=== PATIENT | male | born 1970 | race Caucasian/White ===

== ENCOUNTER 2023-02-01 19:10 | Outpatient (OUT) | payer BC, SELFPAY | END 2023-02-01 19:11 | disposition home or self-care (01) | LOC: PST 19:18 | PROVIDERS: Visit Provider Surgery | DX: Z01.818 Encounter for other preprocedural examination (principal); Z12.11 Encounter for screening for malignant neoplasm of colon ==

== ENCOUNTER 2023-02-06 08:25 | Day surgery (SDC) | payer BC, SELFPAY ==
--- NOTE | 2023-02-06 | OP_ITS ---
OPERATION DATE: ??02/06/2023 PREOPERATIVE DIAGNOSIS:? Colorectal screening. POSTOPERATIVE DIAGNOSIS:? Normal colonoscopy to cecum. PROCEDURE:? Colonoscopy to cecum. SURGEON:? Daniel Navarro M.D. ANESTHESIA:? Monitored anesthesia care. ESTIMATED BLOOD LOSS:? Zero. INDICATIONS AND CONSENT:? Patient is a 52-year-old male presents for colorectal screening.? Indications, risks, benefits, alternatives of proceeding with colonoscopy were explained extensively to the patient, including the risks of bleeding, colon perforation or anesthetic complications.? All of his questions were answered.? Informed consent was obtained.? PROCEDURE:? Patient brought to the operating room, placed in the left lateral decubitus position.? Monitored anesthesia care was provided.? Rectal exam was performed which showed no masses or blood.? The scope was inserted into the anal canal.? Under direct visualization was advanced.? With the aid of abdominal compression, it was advanced to the cecum where cecal markings were clearly identified.? Upon withdrawal of the scope, mucosal surfaces were carefully examined.? There were no mass lesions or polyps.? No inflammatory changes or ulcerations.? No significant diverticulosis.?? The scope was retroflexed in the anal canal.? There was no significant hemorrhoidal disease.? The scope was then withdrawn.? Patient tolerated procedure well, was sent to recovery room in good condition. CC:? Meaghan Villanueva M.D. [facility]ENTER[facility]
--- NOTE | 2023-02-06 08:25 | OP_ITS ---
OP Note ? OPERATION DATE: ??02/06/2023 ? ADDENDUM:? Follow up colonoscopy should be in 10 years for colorectal screening. LESLY
[2023-02-06 08:38] VITALS: BP 153/111; PULSE 110; RESP 20; TEMP 36.1; O2SAT 97; BMI 38.9
[2023-02-06 08:40] LABS: Glucometer 212 mg/dL (74-106)
[2023-02-06] MEDS: LACTATED RINGER'S SOLUTION 1,000 ML 50 ML IV (08:47)
[2023-02-06 09:56] VITALS: BP 94/64; PULSE 100; RESP 16; TEMP 36.6; O2SAT 94
[2023-02-06 10:11] VITALS: BP 128/86; PULSE 97; RESP 16; O2SAT 95
[2023-02-06 10:26] VITALS: BP 131/92; PULSE 100; RESP 16; O2SAT 94
== END 2023-02-06 10:26 | disposition home or self-care (01) ==
PROVIDERS: PCP Specialist; Visit Provider Surgery
PROC: (CPT 45378; principal; 2023-02-06 10:25)
DX: Z12.11 Encounter for screening for malignant neoplasm of colon (principal); E11.9 Type 2 diabetes mellitus without complications; I10 Essential (primary) hypertension; E78.5 Hyperlipidemia, unspecified; G47.33 Obstructive sleep apnea (adult) (pediatric); E66.01 Morbid (severe) obesity due to excess calories; Z79.84 Long term (current) use of oral hypoglycemic drugs; Z68.39 Body mass index [BMI] 39.0-39.9, adult
CPT/HCPCS: 45378; 36415; 82948; J2704

== ENCOUNTER 2023-07-29 09:52 | Outpatient (OUT) | payer BC, SELFPAY ==
[2023-07-29 10:21] LABS: Basophils Absolute Auto 0.1 10^3/uL (0.0-0.1); Basophils Percent Auto 0.9 % (0.2-2.0); Eosinophils Absolute Auto 0.2 10^3/uL (0.0-0.7); Eosinophils Percent Auto 2.5 % (0.9-7.0); Hematocrit 44.7 % (42.0-54.0); Immature Granulocytes Abs Auto 0.04 10^3/uL (0.00-0.03); Immature Granulocytes Pct Auto 0.4 % (0.0-0.5); Lymphocytes Percent Auto 21.6 % (20.5-60.0); Mean Corpuscular HGB Conc 33.6 g/dL (29.9-35.2); Mean Corpuscular Volume 89.4 fL (80.0-94.0); Mean Platelet Volume 9.6 fL (9.5-13.5); Monocytes Absolute Auto 0.7 10^3/uL (0.3-0.8); Monocytes Percent Auto 7.2 % (1.7-12.0); Neutrophils Absolute Auto 6.3 10^3/uL (1.4-6.5); Neutrophils Percent Auto 67.4 % (43.0-75.0); Platelet Count 402 10^3/uL (150-450); Red Cell Distribution Width 12.2 % (11.0-15.0); White Blood Count 9.4 10^3/uL (4.0-11.0)
[2023-07-29 10:37] LABS: Creatinine Urine Random 361.08 mg/dL (20.00-300.00); Microalbum Creatinine Ratio Ur 6.6 mg/g (0.0-29.9); Microalbumin Urine Random 2.4 mg/dL (<=30.0)
[2023-07-29 10:41] LABS: Estimated Average Glucose 189 mg/dL; Glycohemoglobin A1C 8.2 % (4.5-6.2)
[2023-07-29 10:54] LABS: Alanine Aminotransferase 36 U/L (16-63); Albumin Globulin Ratio 0.9; Albumin Level 3.9 g/dL (3.4-5.0); Alkaline Phosphatase 65 U/L (46-116); Aspartate Amino Transferase 15 U/L (15-37); BUN Creatinine Ratio 13.1; Bilirubin Total 0.9 mg/dL (0.2-1.0); Calcium 8.9 mg/dL (8.5-10.1); Carbon Dioxide 30.1 mmol/L (21.0-32.0); Chloride 99 mmol/L (98-107); Chol HDL Ratio 4.7; Cholesterol 203 mg/dL (<=200); Estimated GFR (African America >60 (>=60); Estimated GFR (Non-African Ame >60 (>=60); Globulin 4.3 g/dL; Glucose 172 mg/dL (74-106); HDL Cholesterol 43 mg/dL (40-60); Potassium 4.1 mmol/L (3.5-5.1); Sodium 138 mmol/L (136-145); Total Protein 8.2 g/dL (6.4-8.2); Triglycerides 219 mg/dL (<=150); VLDL CHOLESTEROL 43.8 mg/dL
== END 2023-07-29 09:53 | disposition home or self-care (01) ==
LOC: LAB 09:54
PROVIDERS: PCP Internal Medicine; Visit Provider Internal Medicine
DX: Z00.00 Encounter for general adult medical examination without abnormal findings (principal)
CPT/HCPCS: 36415; 80053; 80061; 82043; 82570; 83036; 85025

== ENCOUNTER 2024-10-24 07:50 | Outpatient (OUT) | payer BC, SELFPAY ==
--- OUTSIDE RECORDS SUMMARY | 2024-10-24 07:57 | XMS_ITS | CCD ---
Author Organization [facility] Care Team Providers [facility] Manager Name Role Phone OBDULIA ., DR ARCHANA Ray Admitting Unavailable OBDULIA ., DR ARCHANA Ray Attending Unavailable OBDULIA ., DR ARCHANA Ray Primary Care Unavailable OBDULIA ., DR ARCHANA Ray Consulting Unavailable ARCHANA VILLANUEVA Primary Care Physician Daniel IRELAND Attending Unavailable ARCHANA VILLANUEVA Referring Unavailable Daniel IRELAND Attending Unavailable Shaikh Heath MD Unavailable Jose Luis Cao MD Primary Care Provider [phone] Bre Petty NP Unavailable MARLA PUENTE Attending Unavailable SHAIKH HEATH Attending Unavailable BRE PETTY Attending UnavailBRE Alcaraz Attending Katherine ray Allergies Allergy Classification Reported Allergen(s) Allergy Type Date of Onset Reaction(s) Facility (1 source) No Known Medication Allergies; Translations: [No Known Medication Allergies] Propensity to adverse reactions (disorder) [facility] Repository Medications Current Medications Medication Drug Class(es) Dates Sig (Normalized) Sig (Original) atorvastatin 20 mg oral tablet (13 sources) HMG-CoA Reductase Inhibitor Start: 09-24-2023 End: 03-01-2025 take 1 tablet by mouth once daily atorvastatin (Lipitor) 20 MG tablet Indications: Hyperlipidemia, unspecified hyperlipidemia type (CMS/HCC) Take 1 tablet (20 mg) by mouth Daily 90 tablet 09/02/2024 03/01/2025 Active carbamide peroxide 65 mg/ml otic solution (2 sources) Start: 03-11-2024 End: 03-15-2024 carbamide peroxide (Debrox) 6.5 % otic solution Indications: Cerumen debris on tympanic membrane, left Administer 3-5 drops into affected ear(s) in the morning and 3-5 drops before bedtime. Do all this for 4 days. 15 mL 03/11/2024 03/15/2024 Active glipiZIDE 5 mg oral tablet (14 sources) Sulfonylurea Start: 02-24-2024 End: 02-28-2025 take 1 tablet by mouth in the morning glipiZIDE (Glucotrol) 5 MG tablet Indications: Type 2 diabetes mellitus without complication, without long-term current use of insulin (CMS/HCC) Take 1 tablet (5 mg) by mouth in the morning and 1 tablet (5 mg) in the evening. Take before meals. 180 tablet 09/01/2024 02/28/2025 Active Start: 01-03-2023 take 1 tablet by alyson th once daily glipiZIDE 5 mg Tab 5 mg = 1 tab(s), Oral, Daily, Refills(s) 0 Start Date: 01/03/23 Status: Ordered hydroCHLOROthiazide 12.5 mg / losartan potassium 100 mg oral tablet (12 sources) Thiazide Diuretic, Angiotensin 2 Receptor Sal Start: 09-01-2024 take 1 tablet by mouth once daily losartan-hydroCHLOROthiazide (Hyzaar) 100-12.5 MG tablet Indications: Essential (primary) hypertension (CMS/HCC) , Essential hypertension (CMS/HCC) TAKE 1 TABLET BY MOUTH EVERY DAY 90 tablet 09/01/2024 Active Start: 11-26-2023 take 1 tablet by alyson th once daily losartan-hydroCHLOROthiazide (Hyzaar) 100-12.5 MG tablet Indications: Essential (primary) hypertension (CMS/HCC) , Essential hypertension (CMS/HCC) TAKE 1 TABLET BY MOUTH EVERY DAY 90 tablet 2 11/26/2023 Active Start: 01-03-2023 take 1 tablet by alyson th once daily hydrochlorothiazide-losartan 12.5 mg-100 mg oral tablet 1 tab(s), Oral, Daily, Refill(s) 0 Start Date: 01/03/23 Status: Ordered 24 hr metFORMIN hydrochloride 500 mg extended release oral tablet (15 sources) Biguanide Start: 03-11-2024 End: 06-10-2025 take 1 tablet by mouth every twenty-four hours at mealtime metFORMIN XR (Glucophage-XR) 500 MG 24 hr tablet Indications: Morbid obesity (CMS/HCC) , Type 2 diabetes mellitus without complication, without long-term current use of insulin (CMS/HCC) TAKE 1 TABLET (500 MG) BY MOUTH IN THE EVENING. TAKE WITH MEALS DO NOT CRUSH, CHEW, OR SPLIT. 30 tablet 11 06/10/2024 06/10/2025 Active Start: 11-28-2023 End: 03-11-2024 take 1 tablet by mouth twice daily metFORMIN (Glucophage) 500 MG tablet Indications: Type 2 diabetes mellitus without complications (CMS/HCC) TAKE 1 TABLET BY MOUTH TWICE A DAY 180 tablet 2 11/28/2023 03/11/2024 Discontinued (Side effects) Start: 01-03-2023 take 1 tablet by alyson th once daily metformin 500 mg ER Tab 500 mg = 1 tab(s), Oral, Daily, Refills(s) 0 Start Date: 01/03/23 Status: Ordered semaglutide 7 mg oral tablet (13 sources) Start: 02-04-2024 End: 09-07-2024 take 1 tablet by mouth before mealtime semaglutide (Rybelsus) 7 MG tablet Indications: Morbid obesity (CMS/HCC) , Type 2 diabetes mellitus without complication, without long-term current use of insulin (CMS/HCC) Take 1 tablet (7 mg) by mouth in the morning. Take before meals. 90 tablet 1 03/11/2024 09/07/2024 Active Problems Active Problems Problem Classification Problem Date Documented Da te Episodic/Chronic Diabetes mellitus without complication (20 sources) Diabetes mellitus; Translations: [Type 2 diabetes mellitus without complication] Onset: 07-22-2023 Resolved: 07-22-2023 01-03-2023 Chronic Disorders of lipid metabolism (18 sources) Hyperlipidemia; Translations: [Hyperlipidemia, unspecified] Onset: 07-22-2023 01-03-2023 Chronic Essential hypertension (16 sources) Hypertensive disorder; Translations: [Essential (primary) hypertension] Onset: 07-22-2023 01-03-2023 Chronic Other gastrointestinal disorders (1 source) Irritable bowel syndrome 01-03-2023 Chronic Other nutritional; endocrine; and metabolic disorders (1 source) Body mass index 30+ - obesity 01-08-2023 Chronic Other nutritional; endocrine; and metabolic disorders (15 sources) Morbid obesity; Translations: [Morbid (severe) obesity due to excess calories] Onset: 07-22-2023 01-08-2023 Chronic Other screening for suspected conditions (not mental disorders or infectious disease) (2 sources) Encounter for screening for malignant neoplasm of prostate; Translations: [Screening for malignant neoplasm of colon done] Onset: 09-06-2022 Episodic Residual codes; unclassified (16 sources) Obstructive sleep apnea syndrome; Translations: [Obstructive sleep apnea (adult) (pediatric)] Onset: 07-22-2023 01-03-2023 Chronic Unclassified (1 source) Patient encounter status 01-08-2023 Past or Other Problems Problem Classification Problem Date Documented Da te Episodic/Chronic Cardiac dysrhythmias (11 sources) Tachycardia; Translations: [Tachycardia, unspecified] Onset: 07-22-2023 07-22-2023 Episodic Other ear and sense organ disorders (2 sources) Wax in ear canal; Translations: [Impacted cerumen, left ear] 03-11-2024 Episodic Results Test Name Value Interpretation Reference Range Facil ity Operative Reporton Operative Report [id number] #1.00CD:127 [facility] Outside Colonoscopyon 2022 Outside Colonoscopy [id number] #1.00CD:127 [facility] Outside Colonoscopyon 2022 Outside Colonoscopy [id number] #1.00CD:127 [facility] Reminderson 02-07-2023 Reminders - From: Michelle Hummel LPN To: GSN - Clinical; Sent: 02/07/2023 14:20:47 EDT Show up: 01/07/2033 07:00:00 EDT Subject: colonoscopy recall Due Date/Time: 02/06/2033 07:00:00 EDT Reminder/Recall Patient due for screening colonoscopy 02/06/2033. Normal [facility] Lab Reportson 02-06-2023 Lab Reports [id number] #1.00CD:127 [facility] Pre-Certification Formon Pre-Certification Form [id number]#1.00CD:127 [facility] Ambulatory Visit Summaryon 0 01-09-2023 Ambulatory Visit Summary LUIS M LIPSCOMB :1970 Visit Date:01/08/2023 Ambulatory Visit Instructions Your Diagnosis Screening for malignant neoplasm of colon Your Care Team Attending Physician - BEKA BERRY, Daniel Ortega Primary Care Physician - OBDULIA BERRY, ARCHANA Ray Referring Physician - OBDULIA BERRY, ARCHANA Ray This Is Your Medications List Contact prescribing physician if questions or concerns glipiZIDE (glipiZIDE 5 mg Tab) hydrochlorothiazide- losartan (hydrochlorothiazide -losartan 12.5 mg-100 mg oral tablet) metformin (metformin 500 mg ER Tab) Procedures Performed Arthroscopy of knee, Repair of umbilical hernia, Vasectomy. Discharge Vitals Heart Rate (Peripheral) 80 Respiratory Rate 16 Blood Pressure 134/84 Height 177.8 cm Height 70 in Weight 126 kg Weight 277.2 lb BMI 39.86 Medications What How Much When Instructions Unchanged glipiZIDE (glipiZIDE 5 mg Tab) 1 Tablets By Mouth Every day Contact prescribing physician if questions or concerns Unchanged hydrochlorothiazide- losartan (hydrochlorothiazide -losartan 12.5 mg-100 mg oral tablet) 1 Tablets By Mouth Every day Contact prescribing physician if questions or concerns Unchanged metformin (metformin 500 mg ER Tab) 1 Tablets By Mouth Every day Contact prescribing physician if questions or concerns Allergies No Known Allergies No Known Medication Allergies Problems Ongoing - Any problem that you are currently receiving treatment for. BMI 39.0-39.9,adult Diabetes HTN (hypertension) Hyperlipidemia IBS (irritable bowel syndrome) Morbid obesity IDRIS (obstructive sleep apnea) Screening for malignant neoplasm of colon [facility] Consent for Procedure/Surger yon 01-09-2023 Consent for Procedure/Surgery [id number] #1.00CD:127 [facility] Facesheeton 01-09-2023 Facesheet [id number] #1.00CD:127 Normal [facility] CBC AUTO DIFFon 09-01-2022 BASO # 0.1 103/ul Normal 0.0-0.1 [facility] Comment on above: Performed By: #### C BC #### [facility] [address] [address] [address] Rebeca Maurice Basophils/100 WBC (Bld) 1.1 % Normal 0.2-2.0 [facility] Comment on above: Performed By: #### C BC #### [facility] [address] [address] [address] Rebeca Maurice EO # 0.3 103/ul Normal 0.0-0.7 [facility] Comment on above: Performed By: #### C BC #### [facility] [address] [place] [address] Dr. Rebeca Maurice Eosinophils/100 WBC (Bld) 3.5 % Normal 0.9-7.0 [facility] Comment on above: Performed By: #### C BC #### [facility] [address] [place] [address] Dr. Rebeca Maurice Erythrocyte distribution width (RBC) [Ratio] 12.0 % Normal 11.0-15.0 [facility] Comment on above: Performed By: #### C BC #### [facility] [address] [place] [address] Dr. Rebeca Maurice Hematocrit (Bld) [Volume fraction] 41.0 % Critically low 42.0-54.0 [facility] Comment on above: Performed By: #### C BC #### [facility] [address] [address] [address] Rebeca Maurice Hemoglobin (Bld) [Mass/Vol] 14.3 g/dL Normal 14.0-18.0 [facility] Comment on above: Performed By: #### C BC #### [facility] [address] [place] [address] Dr. Rebeca Maurice IG # 0.02 10e3/ul Normal 0.00-0.03 [facility] Comment on above: Performed By: #### C BC #### [facility] [address] [place] [address] Dr. Rebeca Maurice IG % 0.3 % Normal 0.0-0.5 [facility] Comment on above: Performed By: #### C BC #### [facility] [address] [place] [address] Dr. Rebeca Maurice LYMPH # 1.7 103/ul Normal 1.2-3.8 [facility] Comment on above: Performed By: #### C BC #### [facility] [address] [place] [address] Dr. Rebeca Maurice Lymphocytes/100 WBC (Bld) 23.3 % Normal 20.5-60.0 [facility] Comment on above: Performed By: #### C BC #### [facility] [address] [place] [address] Dr. Rebeca Maurice MANUAL DIFF REQ NO Normal [facility] Comment on above: Performed By: #### C BC #### [facility] [address] [place] [address] Dr. Rebeca Maurice MCH (RBC) [Entitic mass] 30.2 pg Normal 25.9-34.0 [facility] Comment on above: Performed By: #### C BC #### [facility] [address] [place] [address] Dr. Rebeca Maurice MCHC (RBC) [Mass/Vol] 34.9 g/dL Normal 29.9-35.2 [facility] Comment on above: Performed By: #### C BC #### [facility] [address] [place] [address] Dr. Rebeca Maurice MCV (RBC) [Entitic vol] 86.7 fL Normal 80.0-94.0 [facility] Comment on above: Performed By: #### C BC #### [facility] [address] [place] [address] Dr. Rebeca Maurice MONO # 0.5 103/ul Normal 0.3-0.8 [facility] Comment on above: Performed By: #### C BC #### [facility] [address] [place] [address] Dr. Rebeca Maurice Monocytes/100 WBC (Bld) 7.1 % Normal 1.7-12.0 [facility] Comment on above: Performed By: #### C BC #### [facility] [address] [place] [address] Dr. Rebeca Maurice NEUT # 4.7 103/ul Normal 1.4-6.5 [facility] Comment on above: Performed By: #### C BC #### [facility] [address] [place] [address] Dr. Rebeca Maurice Neutrophils/100 WBC (Bld) 64.7 % Normal 43.0-75.0 [facility] Comment on above: Performed By: #### C BC #### [facility] [address] [place] [address] Dr. Rebeca Maurice Platelet mean volume (Bld) [Entitic vol] 9.1 fL Critically low 9.5-13.5 [facility] Comment on above: Performed By: #### C BC #### [facility] [address] [place] [address] Dr. Rebeca Maurice PLT 379 103/ul Normal 150-450 [facility] Comment on above: Performed By: #### C BC #### [facility] [address] [place] [address] Dr. Rebeca Maurice RBC 4.73 106/ul Normal 4.70-6.10 [facility] Comment on above: Performed By: #### C BC #### [facility] [address] [place] [address] Dr. Rebeca Maurice WBC 7.2 103/ul Normal 4.0-11.0 [facility] Comment on above: Performed By: #### C BC #### [facility] [address] [place] [address] Dr. Rebeca Maurice GLYCOHEMOGLOBIN A1Con 2022 ADA RECOMMENDATION SEE BELOW Normal [facility] Comment on above: Result Comment: ADA RECOMMENDED LIMIT 4.0 - 6.0 ADA THERAPEUTIC TARGET < 7.0 ACTION SUGGESTED > 7.0 Performed By: #### A 1C #### [facility] [address] [address] [address] Rebeca Maurice Glucose [Mass/Vol] 180 mg/dL Critically high 74-[address] [facility] Comment on above: Performed By: #### A 1C #### [facility] [address] [address] [address] Rebeca Maurice Performed By: #### C MP, LIPID #### [facility] [address] [address] [address] Rebeca Maurice HbA1c (Bld) [Mass fraction] 7.9 % Critically high 4.5-6.2 [facility] Comment on above: Performed By: #### A 1C #### [facility] [address] [place] [address] Dr. Rebeca Maurice LIPID PROFILEon 09-01-2022 CHOL-HDL RATIO NORM SEE BELOW Normal [facility] Comment on above: Result Comment: 3.3 - 4.4 LOW RISK 4.4 - 7.1 AVERAGE RISK 7.1 - 11.0 MODERATE RISK >11.0 HIGH RISK Performed By: #### C MP, LIPID #### [facility] [address] [place] [address] Dr. Rebeca Maurice Cholesterol [Mass/Vol] 205 mg/dL Critically high <=200 [facility] Comment on above: Performed By: #### C MP, LIPID #### [facility] [address] [place] [address] Dr. Rebeca Maurice Cholesterol in HDL [Mass/Vol] 40 mg/dL Normal 40-60 [facility] Comment on above: Performed By: #### C MP, LIPID #### [facility] [address] [place] [address] Dr. Rebeca Maurice Cholesterol in LDL [Mass/Vol] 132.6 mg/dL Normal [facility] Comment on above: Performed By: #### C MP, LIPID #### [facility] [address] [place] [address] Dr. Rebeca Maurice Cholesterol.total/Cho lesterol in HDL [Mass ratio] 5.1 {ratio} Normal [facility] Comment on above: Performed By: #### C MP, LIPID #### [facility] [address] [address] [address] Rebeca Maurice HDL NORMAL > or = 60 mg/dl - LOW CARDIOVASCULAR RISK <40 mg/dl - HIGH CARDIOVASCULAR RISK Normal [facility] Comment on above: Performed By: #### C MP, LIPID #### [facility] [address] [address] [address] Rebeca Maurice LDL CALC NORMAL SEE BELOW Normal [facility] Comment on above: Result Comment: <100 mg/dl OPTIMAL 100 - 129 mg/dl NEAR OR ABOVE OPTIMAL 130 - 159 mg/dl BORDERLINE HIGH 160 - 189 mg/dl HIGH >190 mg/dl VERY HIGH Performed By: #### C MP, LIPID #### [facility] [address] [place] [address] Dr. Rebeca Maurice Triglyceride [Mass/Vol] 162 mg/dL Critically high <=150 [facility] Comment on above: Performed By: #### C MP, LIPID #### [facility] [address] [place] [address] Dr. Rebeca Maurice VLDL CALC 32.4 mg/dL Normal [facility] Comment on above: Performed By: #### C MP, LIPID #### [facility] [address] [place] [address] Dr. Rebeca Maurice PROF 14(COMP METB)on 023 Albumin [Mass/Vol] 3.8 g/dL Normal 3.4-5.0 [facility] Comment on above: Performed By: #### C MP, LIPID #### [facility] [address] [place] [address] Dr. Rebeca Maurice Albumin/Globulin [Mass ratio] 1.1 {ratio} Normal [facility] Comment on above: Performed By: #### C MP, LIPID #### [facility] [address] [place] [address] Dr. Rebeca Maurice ALP [Catalytic activity/Vol] 65 U/L Normal 46-116 [facility] Comment on above: Performed By: #### C MP, LIPID #### [facility] [address] [place], [place] [id number] Dr. Rebeca Maurice ALT [Catalytic activity/Vol] 48 U/L Normal 16-63 [facility] Comment on above: Performed By: #### C MP, LIPID #### [facility] [address] [address] [address] Rebeca Maurice Anion gap [Moles/Vol] 15.4 mmol/L Normal [facility] Comment on above: Performed By: #### C MP, LIPID #### [facility] [address] [address] [address] Rebeca Maurice AST [Catalytic activity/Vol] 26 U/L Normal 15-37 [facility] Comment on above: Performed By: #### C MP, LIPID #### [facility] [address] [place] [address] Dr. Rebeca Maurice Bilirubin [Mass/Vol] 1.3 mg/dL Critically high 0.2-1.0 [facility] Comment on above: Performed By: #### C MP, LIPID #### [facility] [address] [place] [address] Dr. Rebeca Muarice Calcium [Mass/Vol] 9.1 mg/dL Normal 8.5-10.1 [facility] Comment on above: Performed By: #### C MP, LIPID #### [facility] [address] [place] [address] Dr. Rebeca Maurice Chloride [Moles/Vol] 100 mmol/L Normal 98-107 [facility] Comment on above: Performed By: #### C MP, LIPID #### [facility] [address] [place] [address] Dr. Rebeca Maurice CO2 [Moles/Vol] 26.7 mmol/L Normal 21.0-32.0 [facility] Comment on above: Performed By: #### C MP, LIPID #### [facility] [address] [place] [address] Dr. Rebeca Maurice Creatinine [Mass/Vol] 0.87 mg/dL Normal 0.70-1.30 [facility] Comment on above: Performed By: #### C MP, LIPID #### [facility] [address] [place] [address] Dr. Rebeca Maurice EGFR-AF CHILEAN >60 Normal >=60 [facility] Comment on above: Performed By: #### C MP, LIPID #### [facility] [address] [place] [address] Dr. Rebeca Maurice EGFR-NON AF CHILEAN >60 Normal >=60 [facility] Comment on above: Performed By: #### C MP, LIPID #### [facility] [address] [place] [address] Dr. Rebeca Maurice Globulin (S) [Mass/Vol] 3.6 g/dL Normal [facility] Comment on above: Performed By: #### C MP, LIPID #### [facility] [address] [place] [address] Dr. Rebeca Maurice Potassium [Moles/Vol] 4.1 mmol/L Normal 3.5-5.1 [facility] Comment on above: Performed By: #### C MP, LIPID #### [facility] [address] [place] [address] Dr. Rebeca Maurice Protein [Mass/Vol] 7.4 g/dL Normal 6.4-8.2 [facility] Comment on above: Performed By: #### C MP, LIPID #### [facility] [address] [place] [address] Dr. Rebeca Maurice Sodium [Moles/Vol] 138 mmol/L Normal 136-145 [facility] Comment on above: Performed By: #### C MP, LIPID #### [facility] [address] [place] [address] Dr. Rebeca Maurice Urea nitrogen [Mass/Vol] 10.0 mg/dL Normal 7.0-18.0 [facility] Comment on above: Performed By: #### C MP, LIPID #### [facility] [address] [place] [address] Dr. Rebeca Maurice Urea nitrogen/Creatinine [Mass ratio] 11.5 mg/mg Normal [facility] Comment on above: Performed By: #### C MP, LIPID #### [facility] [address] [place] [address] Dr. Rebeca Maurice Physician Referralon 023 Physician Referral [id number] #1.00CD:127 Normal [facility] Vital Signs Date Time Vital Sign Value Performing Clinician Facility 06-03-2024 16:52-0500 Body height 177.8 cm Bre Petty SENIOR DIRECTOR MARKETING Work Phone: [facility] 06-03-2024 16:52-0500 Body mass index (BMI) [Ratio] 39.17 kg/m2 Bre Petty SENIOR DIRECTOR MARKETING Work Phone: [facility] 06-03-2024 16:52-0500 Body temperature 96.6 [degF] Bre Petty SENIOR DIRECTOR MARKETING Work Phone: [facility] 06-03-2024 16:52-0500 Body weight 123.83 kg Bre Petty SENIOR DIRECTOR MARKETING Work Phone: [facility] 06-03-2024 16:52-0500 Diastolic blood pressure 84 mm[Hg] Bre Petty SENIOR DIRECTOR MARKETING Work Phone: [facility] 06-03-2024 16:52-0500 Heart rate 115 /min Bre Petty SENIOR DIRECTOR MARKETING Work Phone: [facility] 06-03-2024 16:52-0500 Respiratory rate 16 /min Bre Petty SENIOR DIRECTOR MARKETING Work Phone: [facility] 06-03-2024 16:52-0500 SaO2% (BldA) [Mass fraction] 98 % Bre Petty SENIOR DIRECTOR MARKETING Work Phone: [facility] 06-03-2024 16:52-0500 Systolic blood pressure 140 mm[Hg] Bre Petty SENIOR DIRECTOR MARKETING Work Phone: [facility] 03-11-2024 18:03-0400 Body height 177.8 cm Bre Petty SENIOR DIRECTOR MARKETING Work Phone: [facility] 03-11-2024 18:03-0400 Body mass index (BMI) [Ratio] 38.6 kg/m2 Bre Petty SENIOR DIRECTOR MARKETING Work Phone: [facility] 03-11-2024 18:03-0400 Body temperature 98.49 [degF] Bre Petty SENIOR DIRECTOR MARKETING Work Phone: [facility] 03-11-2024 18:03-0400 Body weight 122.02 kg Bre Petty SENIOR DIRECTOR MARKETING Work Phone: [facility] 03-11-2024 18:03-0400 Diastolic blood pressure 84 mm[Hg] Bre Petty SENIOR DIRECTOR MARKETING Work Phone: [facility] 03-11-2024 18:03-0400 Heart rate 82 /min Bre Petty SENIOR DIRECTOR MARKETING Work Phone: [facility] Comment on above: 97% O2 03-11-2024 18:03-0400 Systolic blood pressure 120 mm[Hg] Bre Petty SENIOR DIRECTOR MARKETING Work Phone: [facility] 01-08-2023 15:30-0400 Blood Pressure Location Daniel LOCKEL [facility] 01-08-2023 15:30-0400 Diastolic blood pressure 84 mm[Hg] Daniel NILL [facility] [place] 01-08-2023 15:30-0400 Heart rate 80 /min Daniel NILL [facility] [place] 01-08-2023 15:30-0400 Respiratory rate 16 /min Daniel NILL [facility] [place] 01-08-2023 15:30-0400 Systolic blood pressure 134 mm[Hg] Daniel NILL [facility] [place] Encounters Encounter Date Encounter Type Care Provider Facility Start: 09-28-2024 End: 09-28-2024 ambulatory MARLA PUENTE Not Available Start: 09-02-2024 End: 09-02-2024 Refill Bre Petty SENIOR DIRECTOR MARKETING Work Phone: [facility] Comment on above: Hyperlipidemia, unsp ecified hyperlipidemia type (CMS/HCC) Start: 09-01-2024 End: 09-01-2024 Refill Bre Petty SENIOR DIRECTOR MARKETING Work Phone: [facility] Comment on above: Type 2 diabetes matthew itus without complication, without long- term current use of insulin (CMS/HCC) Start: 08-26-2024 End: 08-26-2024 Refill Bre Petty SENIOR DIRECTOR MARKETING Work Phone: [facility] Comment on above: Type 2 diabetes matthew itus without complication, without long- term current use of insulin (CMS/HCC) Start: 06-06-2024 End: 06-10-2024 Refill Bre Petty SENIOR DIRECTOR MARKETING Work Phone: [facility] Comment on above: Morbid obesity (CMS/ HCC); Type 2 diabetes mellitus without complication, without long-term current use of insulin (CMS/HCC) Start: 06-03-2024 End: 06-03-2024 Office outpatient visit 15 minutes Bre Calderatrick SENIOR DIRECTOR MARKETING Work Phone: [facility] Comment on above: Mixed hyperlipidemia (CMS/HCC) (Primary Dx); Primary hypertension (CMS/HCC); Type 2 diabetes mellitus without complication, without long-term current use of insulin (CMS/HCC); IDRIS (obstructive sleep apnea) Start: 06-03-2024 End: 06-03-2024 ambulatory BRE PETTY Not Available Start: 06-03-2024 End: 06-03-2024 Bamboo flowsheet Bre Petty SENIOR DIRECTOR MARKETING Work Phone: [facility] Start: 06-03-2024 End: 06-03-2024 Bamboo flowsheet Bre Petty SENIOR DIRECTOR MARKETING Work Phone: [facility] Start: 03-20-2024 End: 03-20-2024 Refill Bre Calderatrick SENIOR DIRECTOR MARKETING Work Phone: [facility] Comment on above: Hyperlipidemia, unsp ecified hyperlipidemia type (CMS/HCC) Start: 03-11-2024 End: 03-11-2024 Office outpatient visit 25 minutes Bre Petty SENIOR DIRECTOR MARKETING Work Phone: [facility] Comment on above: IDRIS (obstructive sle ep apnea) (Primary Dx); Primary hypertension ([facility]/HCC); Morbid obesity ([facility]/HCC); Type 2 diabetes mellitus without complication, without long-term current use of insulin ([facility]); Mixed hyperlipidemia ([facility]); Cerumen debris on tympanic membrane, left Start: 03-11-2024 End: 03-11-2024 ambulatory BRE CALDERATRICK Not Available Start: 03-11-2024 End: 03-11-2024 Bamboo flowsheet Bre Alexk SENIOR DIRECTOR MARKETING Work Phone: [facility] Start: 03-11-2024 End: 03-11-2024 Bamboo flowsheet Bre Calderatrick SENIOR DIRECTOR MARKETING Work Phone: [facility] Start: 11-04-2023 End: 11-04-2023 ambulatory SHAIKH KAYZOEY Not Available Start: 07-22-2023 Patient encounter status Darlyn Petty SENIOR DIRECTOR MARKETING Work Phone: [facility] Start: 03-05-2023 ambulatory Daniel IRELAND Facility:[facility] Start: 02-06-2023 End: 02-07-2023 ambulatory Daniel R NILL Facility:CD:[id number] Start: 01-08-2023 End: 01-09-2023 ambulatory Daniel R NILL Facility: [facility] Start: 01-08-2023 End: 01-08-2023 Patient encounter procedure Daniel IRELAND General Surgery [facility] Start: 09-06-2022 Encounter for genera l adult medical examination without abnormal findings DR ARCHANA VILLANUEVA . [facility] Start: 09-01-2022 End: 09-02-[address] ARCHANA VILLANUEVA . Facility:[facility] Start: 09-01-2022 End: 09-02-2022 Encounter for general adult medical examination without abnormal findings DR ARCHANA VILLANUEVA . Facility:[facility] Start: 08-28-2022 ambulatory Daniel IRELAND Facility:[facility] Procedures Date Procedure Procedure Detail Performing Clinician Start: 12-13-2022 Colonoscopy Bre huerta NP Work Phone: Start: 09-01-[address] ARCHANA MINAYAT . Comment on above: Performed By: #### P [facility] #### [facility] [address] [place] [address] Dr. Rebeca Maurice Arthroscopy of knee Daniel IRELAND Repair of umbilical hernia Daniel BEKA Vasectomy Daniel BEKA Plan of Treatment Date Care Activity Detail Author Start: 12-13-2032 Screening for malign ant neoplasm of colon [facility] Start: 09-18-2025 Glaucoma screening Diabetes: R etinopathy Screening [facility] Start: 01-11-2025 Influenza vaccination Influenza Vacc ine (#1) [facility] Comment on above: Postponed from 03/15 (Patient Refused) Start: 09-28-2024 End: 09-28-2024 Patient encounter procedure 09/28/2024 6:00 PM EDT Office Visit [facility] [address] [place] [address] Marla Puente NP [address] [place] [id number] [facility] Start: 09-02-2024 End: 09-02-2024 Patient encounter procedure 09/02/2024 5:20 PM EST Office Visit [facility] [address] [place] [address] Bre Petty NP [address] [place] [address] [facility] Start: 07-29-2024 Urine screening for protein Diabetes: Urine Protein Screening [facility] Start: 06-03-2024 End: 06-03-2024 Patient encounter procedure [facility] Comment on above: Mixed hyperlipidemia (CMS/HCC) (Primary Dx) Start: 03-15-2024 Influenza vaccination Influenza Vacc ine (#1) [facility] Start: 03-11-2024 End: 03-11-2024 Patient encounter procedure 03/11/2024 6:00 PM EDT Office Visit [facility] [address] [place] [address] Bre [facility] [address] [facility] [address] [place] [address] IDRIS (obstructive sleep apnea) (Primary Dx); Primary hypertension (CMS/HCC); Morbid obesity (CMS/HCC); Type 2 diabetes mellitus without complication, without long-term current use of insulin ([facility]/HCC); Mixed hyperlipidemia (CMS/HCC) [facility] Comment on above: IDRIS (obstructive sle ep apnea) (Primary Dx); Primary hypertension (CMS/HCC); Morbid obesity ([facility]/HCC); Type 2 diabetes mellitus without complication, without long-term current use of insulin ([facility]/HCC); Mixed hyperlipidemia ([facility]/HCC) Start: 10-28-2023 Hemoglobin A1c measurement Diabetes: Hemoglobin A1C [facility] Start: 1970 Screening for malign ant neoplasm of colon [facility] Comprehensive metabo lic 2000 panel - Serum or Plasma Comprehensive metabolic panel Lab Routine Primary hypertension ([facility]/HCC) Morbid obesity ([facility]/HCC) Type 2 diabetes mellitus without complication, without long-term current use of insulin ([facility]/HCC) Ordered: 03/11/2024 [facility] Work Phone: Comment on above: Ordered: 03/11/2024 Immunizations Immunization Date Immunization Notes Care Provider Fa cility 08-14-2021 SARS-CoV-2 mRNA (bapezkxrcby-eoou-eabi ose) vaccine Daniel NILL [facility] Comment on above: Result Comment: 2022: [id number] 08-14-2021 SARS-CoV-2, Unspecified Bre Petty SENIOR DIRECTOR MARKETING Work Phone: [facility] 11-09-2020 SARS-CoV-2 (COVID-19 ) mRNA BNT-162b2 vax Daniel NILL [facility] [place] 10-19-2020 SARS-CoV-2 (COVID-19 ) mRNA BNT-162b2 vax Daniel NILL [facility] [place] Payers Date Payer Category Payer [facility] BCBS Memb er Subscriber Plan / Payer (Effective 2017-Present) Name: Luis M Lipscomb Relation to Subscriber: Self Name: Luis M Lipscomb Payer ID: Not on file Type: Not on file Address: [address] [place] [id number] 2017 Unknown BCBS BCBS xxxxxx [id number] 2017-Present [phone] [address] [place] [address] [id number] 1972 Unknown [id number] 1972 Unknown [id number] 1972 Unknown [id number] 1972 Unknown [id number] 1972 Unknown [id number] 1972 Unknown [id number] 1972 Unknown [id number] 1959 Unknown [id number] Social History Date Type Detail Facility Start: 01-08-2023 End: 11-04-2023 Tobacco smoking status Never smoked tobacco (finding) [facility] Tobacco smoking status Never [facility] Start: 03-11-2024 End: 06-03-2024 Sex Assigned At Male [facility] Start: 11-04-2023 Tobacco use and exposure Smokeless tobacco non-user [facility] Start: 03-11-2024 End: 06-03-2024 Alcoholic beverage intake Lifetime non-drinker (finding) [facility] Start: 03-11-2024 End: 06-03-2024 History of Social function [facility] Start: 07-01-2023 Alcohol Comment caffeine: 1-2 cups per day [facility] Start: 1970 Sex assigned at Not on file [facility] NEGATED: Highlighted rowStart: NINF History of tobacco use Passive smoker [facility] Functional Status Date Assessment Result Facility 01-08-2023 Functional Status N/A [facility] Clinical Notes 01-08-2023 to 06-03-2024 Bre Petty, SENIOR DIRECTOR MARKETING - 06/03/2024 5:18 PM Marcy Petty, SENIOR DIRECTOR MARKETING - 06/03/2024 5:17 PM Marcy Petty, SENIOR DIRECTOR MARKETING - 06/03/2024 5:16 PM Marcy Petty, SENIOR DIRECTOR MARKETING - 06/03/2024 5:15 PM EST Note Date & Type Note Facility 06-03-2024 History of Present illness Narrative Associated Problem(s): IDRIS (obstructive sleep apnea) Wears CPAP routinely No concerns. Associated Problem(s): HTN (hypertension) ([facility]) Currently taking losartan-hydrochlorothiazide Checks BP at home; Averages are 130/70. Slightly elevated in office today- will continue to monitor. Denies orthostatic changes, dizziness, cough, shortness of breath, swelling in extremities. Continue current regimen. Given BP log, advised pt to record BP and bring log back with them to next visit. Associated Problem(s): Hyperlipidemia ([facility]) Currently taking atorvastatin 20mg Denies any myalgias. Continue current regimen. Lipid Panel scanned in. Associated Problem(s): Type 2 diabetes mellitus without complication, without long-term current use of insulin ([facility]) Most recent labs: hemoglobin A1C 7.7%, decrease from 8.2. Has not been checking BG levels at home. No episode of hypoglycemia No medication adverse effects reported by the patient. Patient educated on lifestyle modifications, dietary restrictions, signs and symptoms of hypoglycemia/hyperglycemia and importance of eating regular consistent meals. Stressed upon importance of checking blood glucose at home and bring blood glucose log to appointments. All questions, concerns answered and addressed. Encouraged to call office if persistent hypoglycemia/hyperglycemia on home glucose monitoring noted. Subjective Patient ID: Luis M Lipscomb is a 53 y.o. male who presents for Follow-up. HPI HTN: Currently taking losartan-hydrochlorothiazide Checks BP at home; Averages are 130/70. Slightly elevated in office today- will continue to monitor. Denies orthostatic changes, dizziness, cough, shortness of breath, swelling in extremities. Continue current regimen. Given BP log, advised pt to record BP and bring log back with them to next visit. HLD: Currently taking atorvastatin 20mg Denies any myalgias. Continue current regimen. DMII: Most recent labs: hemoglobin A1C 7.7%, decrease from 8.2. Has not been checking BG levels at home. No episode of hypoglycemia No medication adverse effects reported by the patient. Patient educated on lifestyle modifications, dietary restrictions, signs and symptoms of hypoglycemia/hyperglycemia and importance of eating regular consistent meals. Stressed upon importance of checking blood glucose at home and bring blood glucose log to appointments. All questions, concerns answered and addressed. Encouraged to call office if persistent hypoglycemia/hyperglycemia on home glucose monitoring noted. Education: Check blood sugars daily, notify if <70 or >200. Take medications (pills or insulin) as directed. Monitor for s/s of hypoglycemia (sweaty, dizziness, nausea, vomiting, or shakiness). Watch for increase in thirst, urination, or appetite. Inspect feet frequently monitoring for open wounds , and also recommend yearly eye exam. Pt should attempt to remain as physically active as chronic conditions allow, as well as trying to follow a diet low in carbohydrates, and simple sugars. IDRIS: wears CPAP routinely. Review of Systems Constitutional: Negative for activity change, appetite change, chills, diaphoresis, fatigue, fever and unexpected weight change. HENT: Negative for congestion, ear pain, rhinorrhea, sinus pressure, sinus pain, sneezing, sore throat, trouble swallowing and voice change. Eyes: Negative for visual disturbance. Respiratory: Negative for cough, chest tightness, shortness of breath and wheezing. Cardiovascular: Negative for chest pain, palpitations and leg swelling. Gastrointestinal: Negative for abdominal distention, abdominal pain, blood in stool, constipation, diarrhea and vomiting. Genitourinary: Negative for decreased urine volume, dysuria, flank pain, frequency, hematuria and urgency. Musculoskeletal: Negative for arthralgias, gait problem, joint swelling and myalgias. Skin: Negative for rash. Neurological: Negative for dizziness, tremors, syncope, weakness, light-headedness and headaches. Psychiatric/Behavioral: Negative for decreased concentration and suicidal ideas. The patient is not nervous/anxious. Hematological: Does not bruise/bleed easily. Endocrine: Negative for cold intolerance, heat intolerance, polydipsia, polyphagia and polyuria. Objective Physical Exam Vitals reviewed. Constitutional: Appearance: Normal appearance. HENT: Head: Normocephalic and atraumatic. Right Ear: Tympanic membrane normal. Left Ear: Tympanic membrane normal. Nose: Nose normal. Mouth/Throat: Mouth: Mucous membranes are moist. Pharynx: Oropharynx is clear. Eyes: Pupils: Pupils are equal, round, and reactive to light. Cardiovascular: Rate and Rhythm: Normal rate and regular rhythm. Pulses: Normal pulses. Heart sounds: Normal heart sounds. Pulmonary: Effort: Pulmonary effort is normal. Breath sounds: Normal breath sounds. Abdominal: General: Abdomen is flat. Bowel sounds are normal. Palpations: Abdomen is soft. Musculoskeletal: General: Normal range of motion. Cervical back: Normal range of motion. Skin: General: Skin is warm and dry. Capillary Refill: Capillary refill takes less than 2 seconds. Neurological: General: No focal deficit present. Mental Status: He is alert and oriented to person, place, and time. Psychiatric: Mood and Affect: Mood normal. Behavior: Behavior normal. Assessment/Plan Problem List Items Addressed This Visit HTN (hypertension) ([facility]) Currently taking losartan-hydrochlorothiazide Checks BP at home; Averages are 130/70. Slightly elevated in office today- will continue to monitor. Denies orthostatic changes, dizziness, cough, shortness of breath, swelling in extremities. Continue current regimen. Given BP log, advised pt to record BP and bring log back with them to next visit. Hyperlipidemia ([facility]) - Primary Currently taking atorvastatin 20mg Denies any myalgias. Continue current regimen. Lipid Panel scanned in. IDRIS (obstructive sleep apnea) Wears CPAP routinely No concerns. Type 2 diabetes mellitus without complication, without long-term current use of insulin ([facility]) Most recent labs: hemoglobin A1C 7.7%, decrease from 8.2. Has not been checking BG levels at home. No episode of hypoglycemia No medication adverse effects reported by the patient. Patient educated on lifestyle modifications, dietary restrictions, signs and symptoms of hypoglycemia/hyperglycemia and importance of eating regular consistent meals. Stressed upon importance of checking blood glucose at home and bring blood glucose log to appointments. All questions, concerns answered and addressed. Encouraged to call office if persistent hypoglycemia/hyperglycemia on home glucose monitoring noted. documented in this encounter [facility] 06-03-2024 Instructions Bre Petty NP - 06/03/2024 5:00 PM EST Education: Check blood sugars daily, notify if <70 or >200. Take medications (pills or insulin) as directed. Monitor for s/s of hypoglycemia (sweaty, dizziness, nausea, vomiting, or shakiness). Watch for increase in thirst, urination, or appetite. Inspect feet frequently monitoring for open wounds , and also recommend yearly eye exam. Pt should attempt to remain as physically active as chronic conditions allow, as well as trying to follow a diet low in carbohydrates, and simple sugars. documented in this encounter [facility] 03-11-2024 History of Present illness Narrative Associated Problem(s): IDRIS (obstructive sleep apnea) Wears CPAP routinely. Images from the original note were not included. Subjective Patient ID: Luis M Lipscomb is a 53 y.o. male who presents for Follow-up (4mo, requesting med refills). HPI HTN: Currently taking Losartan- hydrochlorothiazide 100-25mg Does not check BP at home. Is good in office today 120/84. Denies orthostatic changes, dizziness, cough, shortness of breath, swelling in extremities. Continue current regimen. HLD: Atorvastatin 20mg Denies myalgias. Lipid Panel needs Completed. DMII: A1C needs completed Most recent labs: hemoglobin A1C 8.2% Average FSBS range from patient does not check sugars No episode of hypoglycemia No medication adverse effects reported by the patient. Patient educated on lifestyle modifications, dietary restrictions, signs and symptoms of hypoglycemia/hyperglycemia and importance of eating regular consistent meals. Stressed upon importance of checking blood glucose at home and bring blood glucose log to appointments. All questions, concerns answered and addressed. Encouraged to call office if persistent hypoglycemia/hyperglycemia on home glucose monitoring noted. DM eye exam- 05/2023 Diabetic foot exam: Left: Reflexes 2+ Vibratory sensation normal Proprioception normal Sharp/dull discrimination normal Filament test present Right: Reflexes 2+ Vibratory sensation normal Proprioception normal Sharp/dull discrimination normal Filament test present IDRIS: Wears CPAP routinely. Review of Systems Constitutional: Negative for activity change, appetite change, chills, diaphoresis, fatigue, fever and unexpected weight change. HENT: Negative for congestion, ear pain, rhinorrhea, sinus pressure, sinus pain, sneezing, sore throat, trouble swallowing and voice change. Eyes: Negative for visual disturbance. Respiratory: Negative for cough, chest tightness, shortness of breath and wheezing. Cardiovascular: Negative for chest pain, palpitations and leg swelling. Gastrointestinal: Negative for abdominal distention, abdominal pain, blood in stool, constipation, diarrhea and vomiting. Genitourinary: Negative for decreased urine volume, dysuria, flank pain, frequency, hematuria and urgency. Musculoskeletal: Negative for arthralgias, gait problem, joint swelling and myalgias. Skin: Negative for rash. Neurological: Negative for dizziness, tremors, syncope, weakness, light-headedness and headaches. Psychiatric/Behavioral: Negative for decreased concentration and suicidal ideas. The patient is not nervous/anxious. Hematological: Does not bruise/bleed easily. Endocrine: Negative for cold intolerance, heat intolerance, polydipsia, polyphagia and polyuria. Objective Physical Exam Vitals reviewed. Constitutional: Appearance: Normal appearance. HENT: Head: Normocephalic and atraumatic. Right Ear: Tympanic membrane normal. Left Ear: There is impacted cerumen. Nose: Nose normal. Mouth/Throat: Mouth: Mucous membranes are moist. Pharynx: Oropharynx is clear. Eyes: Pupils: Pupils are equal, round, and reactive to light. Cardiovascular: Rate and Rhythm: Normal rate and regular rhythm. Pulses: Normal pulses. Heart sounds: Normal heart sounds. Pulmonary: Effort: Pulmonary effort is normal. Breath sounds: Normal breath sounds. Abdominal: General: Abdomen is flat. Bowel sounds are normal. Palpations: Abdomen is soft. Musculoskeletal: General: Normal range of motion. Cervical back: Normal range of motion. Skin: General: Skin is warm and dry. Capillary Refill: Capillary refill takes less than 2 seconds. Neurological: General: No focal deficit present. Mental Status: He is alert and oriented to person, place, and time. Psychiatric: Mood and Affect: Mood normal. Behavior: Behavior normal. Assessment/Plan Problem List Items Addressed This Visit HTN (hypertension) ([facility]) Currently taking Losartan- hydrochlorothiazide 100-25mg Does not check BP at home. Is good in office today 120/84. Denies orthostatic changes, dizziness, cough, shortness of breath, swelling in extremities. Continue current regimen. Hyperlipidemia ([facility]) Atorvastatin 20mg Needs lipid panel rechecked- ordered today. Denies myalgias. Continue current regimen. Morbid obesity ([facility]/HCC) Discussed with patient their BMI (actual, verses recommended). We have also discussed lifestyle modifications: attempts to perform physical activity as chronic conditions allow, also to monitor dietary intake: increasing protein/fruits/veggies and lowering carb intake (unless contraindicated). Limit sodas, juices, and sugary drinks. Also discussed oral medications that can be utilized for weight loss, as well as surgical options for weight loss. IDRIS (obstructive sleep apnea) - Primary Wears CPAP routinely. Type 2 diabetes mellitus without complication, without long-term current use of insulin ([facility]) Most recent A1C No episode of hypoglycemia No medication adverse effects reported by the patient. Patient educated on lifestyle modifications, dietary restrictions, signs and symptoms of hypoglycemia/hyperglycemia and importance of eating regular consistent meals. Stressed upon importance of checking blood glucose at home and bring blood glucose log to appointments. All questions, concerns answered and addressed. Encouraged to call office if persistent hypoglycemia/hyperglycemia on home glucose monitoring noted. Other Visit Diagnoses Cerumen debris on tympanic membrane, left Associated Problem(s): Morbid obesity ([facility]/HCC) Discussed with patient their BMI (actual, verses recommended). We have also discussed lifestyle modifications: attempts to perform physical activity as chronic conditions allow, also to monitor dietary intake: increasing protein/fruits/veggies and lowering carb intake (unless contraindicated). Limit sodas, juices, and sugary drinks. Also discussed oral medications that can be utilized for weight loss, as well as surgical options for weight loss. Associated Problem(s): HTN (hypertension) ([facility]) Currently taking Losartan- hydrochlorothiazide 100-25mg Does not check BP at home. Is good in office today 120/84. Denies orthostatic changes, dizziness, cough, shortness of breath, swelling in extremities. Continue current regimen. Associated Problem(s): Hyperlipidemia ([facility] [facility] Atorvastatin 20mg Needs lipid panel rechecked- ordered today. Denies myalgias. Continue current regimen. Associated Problem(s): Type 2 diabetes mellitus without complication, without long-term current use of insulin ([facility]) Most recent A1C No episode of hypoglycemia No medication adverse effects reported by the patient. Patient educated on lifestyle modifications, dietary restrictions, signs and symptoms of hypoglycemia/hyperglycemia and importance of eating regular consistent meals. Stressed upon importance of checking blood glucose at home and bring blood glucose log to appointments. All questions, concerns answered and addressed. Encouraged to call office if persistent hypoglycemia/hyperglycemia on home glucose monitoring noted. documented in this encounter [facility] 03-11-2024 Instructions Bre Petty NP - 03/11/2024 6:00 PM EDT FASTING labs ordered. Nothing to eat or drink for 12 hours prior to blood draw. Water and black coffee ok. Your blood pressure is GOOD in the office today. Check your blood pressure at home 3 times per week, preferably in the afternoon. Goal <130/90. Record results in blood pressure log. Bring back with you to your next visit. Education: Check blood sugars daily, notify if <70 or >200. Take medications (pills or insulin) as directed. Monitor for s/s of hypoglycemia (sweaty, dizziness, nausea, vomiting, or shakiness). Watch for increase in thirst, urination, or appetite. Inspect feet frequently monitoring for open wounds , and also recommend yearly eye exam. Pt should attempt to remain as physically active as chronic conditions allow, as well as trying to follow a diet low in carbohydrates, and simple sugars. documented in this encounter [facility] 01-08-2023 Note Chief Complaint consultation for screening colonoscopy HPI Staff 52 year old male presents on consultation from Dr. Villanueva for screening colonoscopy. Denies abdominal or rectal pain. No rectal bleeding or change in bowel habits. Denies nausea or vomiting. No unexplained weight loss. Never had colonoscopy in the past. No known family history of colon cancer. History of Present Illness 52 yo male with h/o htn, DMII, hyperlipidemia, IDRIS, referred for colorectal screening; denies change in bms or blood in stools; no abdominal complaints; denies asa or NSAID use, no SBE prophylaxis; no abdominal operations or previous colonoscopy; no fmhx of GI malignancy or IBD; no tobacco use. Review of Systems PHQ Score Initial Depression Screen Score: 0 ROS - Provider Constitutional: no fever, no sweats, no weight loss. Eyes: yes glasses, no blurred vision, no visual loss. ENMT: no dentures, no hoarseness, no swallowing difficulties, no hearing loss, no ear infection(s), no nose bleeds. Cardiovascular: normal blood pressure, no chest pain, regular heartbeat, no heart murmur. Respiratory: no shortness of breath, no cough, no asthma, no wheezing. Gastrointestinal: no nausea, no vomiting, no diarrhea, no constipation, no blood in stool, no change in bowel habits, no abdominal pain, no hepatitis. Genitourinary: no kidney stones, no urine infection, no dysuria. Musculoskeletal: no pain, no weakness. Skin: no changing moles, no rash, no skin lumps. Neurologic: no seizures, no epilepsy, no headache. Psychiatric: no emotional or psychiatric problem. Heme/Lymph: no bleeding problems, no anemia, no blood clots, no transfusions. Allergy/Immunologic: no swollen lymph nodes/glands, no IV drug abuse. Other: Additional ROS info: Except as noted in the above Review of Systems and in the History of Present Illness, all other systems have been reviewed and are negative or noncontributory. Physical Exam Vitals & Measurements HR: 80(Peripheral) RR: 16 BP: 134/84 HT: 70 in HT: 177.8 cm WT: 126 kg WT: 277.2 lb BMI: 39.86 HEENT: normal conjunctiva, sclera clear, no scleral icterus, EOM intact, PERRLA, oral mucosa moist without lesions. Neck: trachea midline, no mass, symmetric, no thyromegaly or nodules, no adenopathy Respiratory: lungs CTA, respirations non labored. Cardiovascular: regular rate and rhythm, no murmur, no pedal edema or varicosities. Gastrointestinal:obese, soft, non distended, no tenderness, no masses, no palpable hernias, diastasis recti no, no hepatosplenomegaly; normal bs Lymphatic: no cervical adenopathy, no supraclavicular adenopathy. Musculoskeletal: normal gait, digits and nails without infection, nodes, cyanosis, clubbing. Skin: no rashes, no lesions, no ulcers, no subcutaneous nodules, induration. Psychiatric/Neuro: oriented to time, place, person, judgement normal, affect appropriate for age, insight intact, no focal deficits. Tests: review of old records completed, Discussed surgical options, risks, and possible complications with patient. Assessment/Plan 1. Screening for malignant neoplasm of colon (Z12.11: Encounter for screening for malignant neoplasm of colon) plan colonoscopy under anesthesia, informed consent obtained. Follow-up No qualifying data available Problem List/Past Medical History Ongoing BMI 39.0-39.9,adult Diabetes HTN (hypertension) Hyperlipidemia IBS (irritable bowel syndrome) Morbid obesity IDRIS (obstructive sleep apnea) Screening for malignant neoplasm of colon Historical No qualifying data Procedure/Surgical History Arthroscopy of knee, Repair of umbilical hernia, Vasectomy. Medications glipiZIDE 5 mg Tab, 5 mg= 1 tab(s), Oral, Daily hydrochlorothiazide-losartan 12.5 mg-100 mg oral tablet, 1 tab(s), Oral, Daily metformin 500 mg ER Tab, 500 mg= 1 tab(s), Oral, Daily Allergies No Known Allergies No Known Medication Allergies Social History Alcohol - Denies Alcohol Use, 01/08/2023 Tobacco Never (less than 100 in lifetime) Tobacco Use:. Never Smokeless Tobacco Use:., 01/08/2023 Family History Alcoholism: Father. Cirrhosis of liver: Father. Ovarian cancer: Mother. Immunizations Vaccine Date Status Comments SARSCoV2 mRNA(michelle) vac 08/14/2021 Recorded 2023-01-03: TPV40 SARS-CoV-2 (COVID-19) mRNA BNT-162b2 vax 11/09/2020 Recorded SARS-CoV-2 (COVID-19) mRNA BNT-162b2 vax 10/19/2020 Recorded [facility] Comment on above: Result Comment: Elec tronically Signed By: BEKA BERRY, Daniel Jang\Date and Time Signed: 01/08/23 15:49 EDT Evaluation + Plan note No data available for this section General Surgery [place] Evaluation note Diagnosis Type 2 diabetes mellitus without complication, without long-term current use of insulin (CMS/HCC)- Primary Hyperlipidemia, unspecified hyperlipidemia type (CMS/HCC) Primary hypertension (CMS/HCC) Unspecified essential hypertension Morbid obesity (CMS/HCC) Morbid obesity Tachycardia determined by examination of pulse Wellness examination Hyperlipidemia, unspecified hyperlipidemia type (CMS/HCC)- Primary Type 2 diabetes mellitus without complication, without long-term current use of insulin (CMS/HCC) Primary hypertension (CMS/HCC) Unspecified essential hypertension IDRIS (obstructive sleep apnea)- Primary Obstructive sleep apnea (adult) (pediatric) Primary hypertension (CMS/HCC) Unspecified essential hypertension Morbid obesity (CMS/HCC) Morbid obesity Type 2 diabetes mellitus without complication, without long-term current use of insulin (CMS/HCC) Mixed hyperlipidemia (CMS/HCC) Mixed hyperlipidemia Cerumen debris on tympanic membrane, left Mixed hyperlipidemia (CMS/HCC)- Primary Mixed hyperlipidemia Primary hypertension (CMS/HCC) Unspecified essential hypertension Type 2 diabetes mellitus without complication, without long-term current use of insulin (CMS/HCC) DIRIS (obstructive sleep apnea) Obstructive sleep apnea (adult) (pediatric) documented in this encounter [facility] HealthcareEvaluation note* Diagnosis Type 2 diabetes mellitus without complication, without long-term current use of insulin (CMS/HCC)- Primary Hyperlipidemia, unspecified hyperlipidemia type (CMS/HCC) Primary hypertension (CMS/HCC) Unspecified essential hypertension Morbid obesity (CMS/HCC) Morbid obesity Tachycardia determined by examination of pulse Wellness examination Hyperlipidemia, unspecified hyperlipidemia type (CMS/HCC)- Primary Type 2 diabetes mellitus without complication, without long-term current use of insulin ([facility]) Primary hypertension ([facility]) Unspecified essential hypertension IDRIS (obstructive sleep apnea)- Primary Obstructive sleep apnea (adult) (pediatric) Primary hypertension ([facility]/H[facility]) Unspecified essential hypertension Morbid obesity ([facility]) Morbid obesity Type 2 diabetes mellitus without complication, without long-term current use of insulin ([facility]) Mixed hyperlipidemia ([facility]) Mixed hyperlipidemia Cerumen debris on tympanic membrane, left Mixed hyperlipidemia ([facility]/HCC)- Primary Mixed hyperlipidemia Primary hypertension ([facility]) Unspecified essential hypertension Type 2 diabetes mellitus without complication, without long-term current use of insulin ([facility]) IDRIS (obstructive sleep apnea) Obstructive sleep apnea (adult) (pediatric) Morbid obesity ([facility]) Morbid obesity Type 2 diabetes mellitus without complication, without long-term current use of insulin ([facility]) documented in this encounter [facility] HealthcareEvaluation note* Diagnosis IDRIS (obstructive sleep apnea)- Primary Obstructive sleep apnea (adult) (pediatric) Primary hypertension ([facility]) Unspecified essential hypertension Morbid obesity ([facility]) Morbid obesity Type 2 diabetes mellitus without complication, without long-term current use of insulin ([facility] Mixed hyperlipidemia ([facility]) Mixed hyperlipidemia Cerumen debris on tympanic membrane, left documented in this encounter [facility] HealthcareEvaluation note* Diagnosis Hyperlipidemia, unspecified hyperlipidemia type ([facility]) documented in this encounter [facility] HealthcareEvaluation note* Diagnosis Type 2 diabetes mellitus without complication, without long-term current use of insulin ([facility])- Primary Hyperlipidemia, unspecified hyperlipidemia type ([facility]) Primary hypertension ([facility]) Unspecified essential hypertension Morbid obesity ([facility]) Morbid obesity Tachycardia determined by examination of pulse Wellness examination Hyperlipidemia, unspecified hyperlipidemia type ([facility])- Primary Type 2 diabetes mellitus without complication, without long-term current use of insulin ([facility]) Primary hypertension ([facility]/HCC[facility] Unspecified essential hypertension IDRIS (obstructive sleep apnea)- Primary Obstructive sleep apnea (adult) (pediatric) Primary hypertension ([facility]/HCC) Unspecified essential hypertension Morbid obesity ([facility]) Morbid obesity Type 2 diabetes mellitus without complication, without long-term current use of insulin ([facility]) Mixed hyperlipidemia ([facility]) Mixed hyperlipidemia Cerumen debris on tympanic membrane, left Mixed hyperlipidemia ([facility]/HCC)- Primary Mixed hyperlipidemia Primary hypertension (CMS/HCC) Unspecified essential hypertension Type 2 diabetes mellitus without complication, without long-term current use of insulin (CMS/HCC) IDRIS (obstructive sleep apnea) Obstructive sleep apnea (adult) (pediatric) Type 2 diabetes mellitus without complication, without long-term current use of insulin (CMS/HCC) documented in this encounter [facility] HealthcareEvaluation note* Diagnosis Type 2 diabetes mellitus without complication, without long-term current use of insulin (CMS/HCC)- Primary Hyperlipidemia, unspecified hyperlipidemia type (CMS/HCC) Primary hypertension (CMS/HCC) Unspecified essential hypertension Morbid obesity (CMS/HCC) Morbid obesity Tachycardia determined by examination of pulse Wellness examination Hyperlipidemia, unspecified hyperlipidemia type (CMS/HCC)- Primary Type 2 diabetes mellitus without complication, without long-term current use of insulin (CMS/HCC) Primary hypertension (CMS/HCC) Unspecified essential hypertension IDRIS (obstructive sleep apnea)- Primary Obstructive sleep apnea (adult) (pediatric) Primary hypertension (CMS/HCC) Unspecified essential hypertension Morbid obesity (CMS/HCC) Morbid obesity Type 2 diabetes mellitus without complication, without long-term current use of insulin (CMS/HCC) Mixed hyperlipidemia (CMS/HCC) Mixed hyperlipidemia Cerumen debris on tympanic membrane, left Mixed hyperlipidemia (CMS/HCC)- Primary Mixed hyperlipidemia Primary hypertension (CMS/HCC) Unspecified essential hypertension Type 2 diabetes mellitus without complication, without long-term current use of insulin (CMS/HCC) IDRIS (obstructive sleep apnea) Obstructive sleep apnea (adult) (pediatric) Hyperlipidemia, unspecified hyperlipidemia type (CMS/HCC) documented in this encounter [facility] HealthcareHospital Discharge instructions No data available for this section General Surgery [place] Progress note No data available for this section General Surgery [place] Summary Purpose Family History No Family History Records FoundNo Family History Records FoundNo Family History Records Found Advance Directives No Advanced Directives Records FoundNo Advanced Directives Records FoundNo Advanced Directives Records Found Additional Source Comments (unrecognized sect ion and content) No Status Records FoundNo Status Records FoundNo Status Records Found INFORMATION SOURCE (unrecogn ized section and content) DATE CREATED AUTHOR 09/07/2022 [facility] DATE CREATED AUTHOR AUTHOR'S ORGANIZ ATION 03/06/2023 [facility] DATE CREATED AUTHOR AUTHOR'S ORGANIZ ATION 09/30/2024 [facility] EPIC Patient Care team informatio n (unrecognized section and content) Senior Center Manager Relationship Specialty Start Date End Date Shaikh Heath MD [address] [place] [phone] PCP - [employer] 07/15/23 Jose Luis Cao MD [address] [place] [phone] PCP - General Family Medicine 02/17/24 Bre Petty NP [address] [place] [phone] Nurse Practitioner Family Medicine 02/17/24 Senior Center Manager Relationship Specialty Start Date End Date Shaikh Heath MD [address] [place] [phone] PCP - [employer] 07/15/23 Jose Luis Cao MD [address] [place] [phone] PCP - General Family Medicine 02/17/24 Bre Petty NP [address] [place] [phone] Nurse Practitioner Family Medicine 02/17/24 Senior Center Manager Relationship Specialty Start Date End Date Shaikh Heath MD [address] [place] [phone] PCP - [employer] 07/15/23 Jose Luis Cao MD [address] [place] [phone] PCP - General Family Medicine 02/17/24 Bre Petty NP [address] [place] [phone] Nurse Practitioner Family Medicine 02/17/24 Senior Center Manager Relationship Specialty Start Date End Date Shaikh Heath MD [address] [place] [phone] PCP - [employer] 07/15/23 Jose Luis Cao MD [address] [place] [phone] PCP - General Family Medicine 02/17/24 Bre Petty NP [address] [place] [phone] Nurse Practitioner Family Medicine 02/17/24 Senior Center Manager Relationship Specialty Start Date End Date Shaikh Heath MD [address] [place] [phone] PCP - [employer] 07/15/23 Jose Luis Cao MD [address] [place] [phone] PCP - General Family Medicine 02/17/24 Bre Petty NP [address] [place] [address] Nurse Practitioner Family Medicine 02/17/24 Senior Center Manager Relationship Specialty Start Date End Date Shaikh Heath MD [address] [place] [phone] PCP - [employer] 07/15/23 Jose Luis Cao MD [address] [place] [phone] PCP - General Family Medicine 02/17/24 Bre Petty NP [address] [place] [address] Nurse Practitioner Family Medicine 02/17/24 Senior Center Manager Relationship Specialty Start Date End Date Shaikh Heath MD [address] [place] [phone] PCP - [employer] 07/15/23 Jose Luis Cao MD [address] [place] [phone] PCP - General Family Medicine 02/17/24 Bre Petty NP [address] [place] [address] Nurse Practitioner Family Medicine 02/17/24 Reason for Visit (unrecogniz ed section and content) Reason Comments Follow-up Reason Comments Med Change Request Reason Comments Follow-up 4mo, requesting med refills Reason Onset Date Comments Med Refill 03/20/2024 Reason Comments Med Refill Reason Onset Date Comments Med Refill 09/01/2024 Reason Onset Date Comments Med Refill 09/02/2024 FOR RECORDS PERTAINING TO PATIENTS WHO ARE OR HAVE BEEN ENROLLED IN A CHEMICAL DEPENDENCY/SUBSTANCEABUSE PROGRAM, SOME INFORMATION MAY BE OMITTED. This clinical summary was aggregated from multiple sources. Caution should be exercised in using it in the provision of clinical care. This summary normalizes information from multiple sources, and as a consequence, information in this document may materially change the coding, format and clinical context of patient data. In addition, data may be omitted in some cases. CLINICAL DECISIONS SHOULD BE BASED ON THE PRIMARY CLINICAL RECORDS. [facility] [employer] [facility]. provides no warranty or guarantee of the accuracy or completeness of information in this document.
[2024-10-24 08:12] LABS: Basophils Absolute Auto 0.1 10^3/uL (0.0-0.1); Basophils Percent Auto 0.8 % (0.2-2.0); Eosinophils Absolute Auto 0.2 10^3/uL (0.0-0.7); Eosinophils Percent Auto 1.9 % (0.9-7.0); Hematocrit 42.6 % (42.0-54.0); Hemoglobin 14.5 g/dL (14.0-18.0); Immature Granulocytes Abs Auto 0.03 10^3/uL (0.00-0.03); Immature Granulocytes Pct Auto 0.3 % (0.0-0.5); Lymphocytes Absolute Auto 2.3 10^3/uL (1.2-3.8); Lymphocytes Percent Auto 21.1 % (20.5-60.0); Mean Corpuscular Hemoglobin 30.4 pg (25.9-34.0); Mean Corpuscular Volume 89.3 fL (80.0-94.0); Mean Platelet Volume 9.4 fL (9.5-13.5); Monocytes Percent Auto 8.9 % (1.7-12.0); Neutrophils Absolute Auto 7.3 10^3/uL (1.4-6.5); Platelet Count 398 10^3/uL (150-450); Red Blood Count 4.77 10^6/uL (4.70-6.10); Red Cell Distribution Width 12.3 % (11.0-15.0); White Blood Count 10.9 10^3/uL (4.0-11.0)
[2024-10-24 08:37] LABS: Bilirubin Urine NEGATIVE (NEGATIVE); Blood Urine NEGATIVE (NEGATIVE); Clarity Urine CLEAR (CLEAR); Color Urine YELLOW (YELLOW); Creatinine Urine Random 319.85 mg/dL (20.00-300.00); Glucose Urine UA 250 mg/dL (NEGATIVE); Ketones Urine TRACE mg/dL (NEGATIVE); Leukocyte Esterase Urine NEGATIVE (NEGATIVE); Microalbum Creatinine Ratio Ur 7.1 mg/g (0.0-29.9); Microalbumin Urine Random 2.3 mg/dL (<=30.0); Nitrite Urine NEGATIVE (NEGATIVE); Protein Urine TRACE mg/dL (NEG/TRACE); Specific Gravity Urine 1.025 (1.005-1.025); Urobilinogen Urine 0.2 EU/dL (0.2-1.0)
[2024-10-24 08:48] LABS: Urine Microscopic Indicated NO
[2024-10-24 09:20] LABS: Alanine Aminotransferase 29 U/L (16-63); Albumin Globulin Ratio 1.2; Albumin Level 4.1 g/dL (3.4-5.0); Alkaline Phosphatase 77 U/L (46-116); Anion Gap 10.3; Aspartate Amino Transferase 20 U/L (15-37); BUN Creatinine Ratio 12.8; Calcium 8.9 mg/dL (8.5-10.1); Chloride 100 mmol/L (98-107); Chol HDL Ratio 3.6; Cholesterol 135 mg/dL (<=200); Estimated GFR (African America >60 (>=60 mL/min/1.73m^2); Estimated GFR (Non-African Ame >60 (>=60 mL/min/1.73m^2); Globulin 3.4 g/dL; Glucose 169 mg/dL (74-106); HDL Cholesterol 38 mg/dL (40-60); Potassium 3.3 mmol/L (3.5-5.1); Sodium 136 mmol/L (136-145); Total Protein 7.5 g/dL (6.4-8.2); Triglycerides 144 mg/dL (<=150); VLDL CHOLESTEROL 28.8 mg/dL
[2024-10-24 09:30] LABS: Prostate Specific Antigen Scrn 1.11 ng/mL (<=4.00)
== END 2024-10-24 07:51 | disposition home or self-care (01) ==
PROVIDERS: PCP Nurse Practitioner; Visit Provider Nurse Practitioner
DX: Z00.00 Encounter for general adult medical examination without abnormal findings (principal); Z12.5 Encounter for screening for malignant neoplasm of prostate
CPT/HCPCS: 36415; 80053; 80061; 81003; 82043; 82570; 85025; G0103